=== PATIENT | male | born 1955 | race African-American/Black ===

== ENCOUNTER 2016-08-31 10:55 | Emergency (ER) | payer MEDICAID | END 2016-08-31 16:35 | disposition home or self-care (01) | LOC: ER 10:55 | DX: G45.9 Transient cerebral ischemic attack, unspecified (principal); Z79.899 Other long term (current) drug therapy | CPT/HCPCS: 36415; 70450; 71010; 80053; 81003; 82947; 85025; 85610; 93005 ==